=== PATIENT | female | born 1960 | race Caucasian/White ===

== ENCOUNTER 2020-08-03 10:17 | Outpatient (CLI) | payer SELFPAY ==
--- NOTE | ~2020-08-03 | MM_ITS ---
EXAMINATION: MM screening tiara BI w arnav HISTORY: Screening TECHNIQUE: Craniocaudal and mediolateral oblique 3-D tomosynthesis images were obtained and synthetic 2-D images were generated. CAD analysis was submitted and interpreted. COMPARISON: Comparison to multiple prior studies sequentially, with oldest reviewed study dated 06/17. BREAST PARENCHYMAL COMPOSITION: There are scattered areas of fibroglandular density. FINDINGS: There is no evidence of suspicious mass, calcification, or architectural distortion to sugg est malignancy in either breast. There has been no suspicious interval change. IMPRESSION: 1. No mammographic evidence of malignancy. 2. Recommend routine screening mammography in one year. BI-RADS Category 1: Negative Reviewed, dictated and finalized at location A.
--- NOTE | 2020-08-03 10:24 | ECG_ITS ---
Measurements Intervals [place] Rate: 60 P: 52 CT: 156 QRS: 73 QRSD: 92 T: -20 QT: 402 QTc: 404 Interpretive Statements SINUS RHYTHM VENTRICULAR PREMATURE COMPLEX ST-T WAVE ABNORMALITY IN INFERIOR LEADS- CONSIDER ISCHEMIA ABNORMAL ECG Electronically Signed On 08-03-2020 11:22:39 CDT by Asher Painter D.O.
[2020-08-03 10:59] LABS: Basophils Absolute Auto 0.04 K/mm3 (0.00-0.10); Basophils Percent Auto 0.6 % (0.0-1.0); Eosinophils Absolute Auto 0.02 K/mm3 (0.02-0.50); Eosinophils Percent Auto 0.3 % (1.0-6.0); Immature Granulocyte Absolute 0.04 K/mm3 (0.00-0.00); Immature Granulocyte Percent A 0.6 % (0.0-0.0); Lymphocytes Absolute Auto 1.99 K/mm3 (1.10-4.50); Lymphocytes Percent Auto 29.2 % (18.0-42.0); Mean Corpuscular HGB Conc 32.6 g/dL (32.0-36.0); Mean Corpuscular Hemoglobin 30.8 pg (27.0-31.0); Mean Corpuscular Volume 94.5 fL (78.0-102.0); Mean Platelet Volume 9.2 fl (9.2-11.8); Monocytes Percent Auto 4.4 % (2.0-11.0); Neutrophils Absolute Auto 4.4 K/mm3 (1.7-7.2); Neutrophils Percent Auto 64.9 % (50.0-70.0); Platelet Count Result 311 K/mm3 (150-420); Red Blood Count 4.55 M/mm3 (4.20-5.40); Red Cell Distribution Width 13.5 % (11.6-14.4); White Blood Count 6.8 K/mm3 (4.8-10.8)
[2020-08-03 11:31] LABS: Alanine Aminotransferase 27 U/L (14-59); Albumin Level 3.9 g/dL (3.4-5.0); Alkaline Phosphatase 71 U/L (46-116); Anion Gap 11 mmol/L (8-16); Aspartate Amino Transferase 15 U/L (15-37); Bilirubin,Total 0.5 mg/dL (0.00-1.00); Blood Urea Nitrogen 15 mg/dL (7-18); Calcium 8.9 mg/dL (8.5-10.1); Carbon Dioxide 26 mmol/L (21-32); Chloride 104 mmol/L (98-108); Cholesterol 207 mg/dL (0-200); Estimated Glomerular Filt Rate > 60; Glucose 105 mg/dL (70-99); HDL Direct 81 mg/dL (40-60); LDL Cholesterol Calculated 108 mg/dL (<130); Osmolality Calculated 292 mOsm/kg (285-295); Potassium 4.2 mmol/L (3.5-5.1); Sodium 141 mmol/L (136-145); Triglycerides 90 mg/dL (0-150)
== END 2020-08-03 10:18 | disposition home or self-care (01) ==
LOC: CHSCARD 10:24
PROVIDERS: PCP Nurse Practitioner Family; Visit Provider Nurse Practitioner Family
DX: R00.2 Palpitations (principal); Z00.00 Encounter for general adult medical examination without abnormal findings; K92.1 Melena; Z12.31 Encounter for screening mammogram for malignant neoplasm of breast
CPT/HCPCS: 36415; 77063; 77067; 80053; 80061; 85025; 93005

== ENCOUNTER 2020-08-10 08:49 | Outpatient (CLI) | payer SELFPAY ==
--- NOTE | 2020-08-10 08:55 | EST_ITS ---
Patient Info Name: Kortney Mills Age: 59 years : 1960 Gender: Female Ht: 66 in Wt: 173 lbs BSA: 1.93 m2 HR: 68 bpm BP: 177 / 81 mmHg Heart Rhythm: Sinus Rhythm Technical Quality: Excellent Exam Date: 08/10/2020 10:55 AM Exam Location: [facility] Patient Status: Outpatient Admit Date: 08/10/2020 Staff Ordering Physician: Jessica North NP Attending Provider: Jessica North NP Exercise Technologist: Lis Tellez CRT Exercise Physician: Chichi Gasca CEP Exam Type: CA stress dorita w NM Study Info Indications AbnormalEKG - A nuclear stress test was performed. History/Risk Factors Tobacco Use: Former History/Risk Factors Former Smoker. Summary 1. 1. Negative lexiscan stress test for ischemic ST changes by ECG criteria. 2. 2. Baseline hypertension. 3. 3. Nuclear scan to follow and will be reported separately. Please correlate with it. Protocol: LEXISCAN Stress ECG Details Stage: REST Duration (min): 2 min : 28 sec HR (bpm): 69 SBP (mmHg): 177 DBP (mmHg): 81 Stage: REST Duration (min): 3 min : 16 sec HR (bpm): 70 SBP (mmHg): 177 DBP (mmHg): 81 Stage: STAGE 1 Duration (min): 0 min : 6 sec HR (bpm): 70 SBP (mmHg): 177 DBP (mmHg): 81 Stage: RECOVERY Duration (min): 0 min : 53 sec HR (bpm): 105 SBP (mmHg): 177 DBP (mmHg): 81 Stage: RECOVERY Duration (min): 1 min : 54 sec HR (bpm): 101 SBP (mmHg): 177 DBP (mmHg): 81 Stage: RECOVERY Duration (min): 2 min : 53 sec HR (bpm): 100 SBP (mmHg): 165 DBP (mmHg): 80 Stage: RECOVERY Duration (min): 3 min : 54 sec HR (bpm): 95 SBP (mmHg): 161 DBP (mmHg): 81 Stage: RECOVERY Duration (min): 4 min : 54 sec HR (bpm): 92 SBP (mmHg): 159 DBP (mmHg): 81 Stage: RECOVERY Duration (min): 5 min : 53 sec HR (bpm): 92 SBP (mmHg): 155 DBP (mmHg): 83 Stage: RECOVERY Duration (min): 6 min : 6 sec HR (bpm): 93 SBP (mmHg): 155 DBP (mmHg): 83 Rest HR: 70 bpm Peak HR: 105 bpm Rest Sys BP: 177 mmHg Peak Sys BP: 165 mmHg Max Pred HR: 160 bpm % Max Pred HR: 66 % Target HR: 136 bpm Max RPP: 17,325 bpm*mmHg BP Response: Resting hypertension/Appropriate response to lexiscan Termination Reason: Completion of Protocol Cardiac Symptoms: Dyspnea Total Time: 0 min : 6 sec Rest Bryant BP: 81 mmHg Peak Brynat BP: 80 mmHg Total Dose: 0.4 mg Resting ECG Sinus rhythm with borderline T wave in inferior leads. Stress ECG No ST changes. Arrhythmias Isolated PVC's. Report Signatures
--- NOTE | 2020-08-10 11:50 | WPDCARIOSTRE ---
Nuclear Stress Test INDICATIONS Indications: Chest pain PROCEDURE Procedure Performed: Myocardial Perf Spect-Multi Procedure: Patient underwent lexiscan stress test and immediately after was injected with 30 mCi of cardiolyte. Multiple tomographic images were obtained. These were of good quality. There is no evidence of perfusion defects during stress imaging. A separate resting images were obtained after patient was injected with 9 mCi of cardiolyte. Multiple tomographic images were obtained. These were of good quality. There is no evidence of perfusion defects during rest imaging. CONCLUSION Conclusion: 1. Normal myocardial perfusion imaging with no evidence of perfusion defects during stress or rest imaging. 2. No reversible ischemia. 3. Left ventriculogram demonstrates normal EF at 66%. No wall motion abnormalities. 4. TID score is normal at 1.09.
== END 2020-08-10 08:50 | disposition home or self-care (01) ==
LOC: CHSCARD 08:52
PROVIDERS: PCP Family Medicine; Visit Provider Nurse Practitioner Family
DX: R94.31 Abnormal electrocardiogram [ECG] [EKG] (principal); I49.3 Ventricular premature depolarization
CPT/HCPCS: 78452; 93017; A9502; J2785